=== PATIENT | female | born 1955 | race Asian ===

== ENCOUNTER 2017-06-21 16:53 | Emergency (ER) | payer MEDICAID ==
[~2017-06-21] VITALS: Ht 160 cm; Wt 52.3 kg
[~2017-06-21 16:53] MED LIST: HYDR25TA PO; MERO1I IV; METF850T2 PO
[2017-06-21] MEDS ORDERED: PANT40TA25 PO (17:37)
[2017-06-21] MEDS ORDERED: METO-296 PO (17:37)
[2017-06-21] MEDS ORDERED: HYDR25TA PO (17:37)
[2017-06-21] MEDS ORDERED: IPRA3AMP4 IH (17:37)
[2017-06-21] MEDS ORDERED: ACET1TAB12 PO (17:37)
[2017-06-21] MEDS ORDERED: INSNOV SQ (17:37)
[2017-06-21 18:01] LABS: BASOPHILS % (AUTO) 0.4 % (0.0-2.0); EOSINOPHILS % (AUTO) 1.9 % (1.0-6.0); HEMATOCRIT 34.5 % (36-46); HEMOGLOBIN 11.6 g/dL (12.0-16.0); LYMPHOCYTES # (AUTO) 1.2 K/uL (1.0-4.8); LYMPHOCYTES % (AUTO) 14.9 % (22.0-44.0); MEAN CORPUSCULAR HGB CONC 33.5 G/dL (31.0-37.0); MEAN CORPUSCULAR VOLUME 83 fL (80-100); MONOCYTES # (AUTO) 0.6 K/uL (0.1-1.0); MONOCYTES % (AUTO) 6.9 % (2.0-9.0); NEUTROPHILS % (AUTO) 75.9 % (40.0-70.0); PLATELET COUNT (AUTO) 249 K/uL (150-450); RED BLOOD CELL COUNT(AUTO) 4.13 MIL/uL (4.00-5.20); RED CELL DISTRIBUTION WIDTH 15.9 % (11.5-14.5); WHITE BLOOD COUNT (AUTO) 7.9 K/uL (4.5-11.0)
[2017-06-21 18:07] LABS: CALCIUM, TOTAL 10.2 mg/dL (8.8-10.5); CREATININE 1.17 mg/dL (0.60-1.30)
[2017-06-21 18:13] LABS: ALBUMIN 2.4 g/dL (3.4-5.0); BILIRUBIN,TOTAL 0.6 mg/dL (0.1-1.0); INR 1.1 (0.9-1.1); PROTHROMBIN TIME 11.7 SEC (9.4-11.6); TOTAL PROTEIN, SERUM 8.2 g/dL (6.4-8.2)
[2017-06-21] MEDS ORDERED: HYDROmorphone 2 MG/ML SYRINGE IVP ONE (18:45)
[2017-06-21] MEDS ORDERED: ONDANSETRON HCL 4 MG/2 ML VIAL IVP ONE (18:45)
[2017-06-21] MEDS ORDERED: BARIUM SULFATE 0.1% SUSPENSION 450 ML BOTTLE PO ONE (18:45)
[2017-06-21] MEDS ORDERED: SODIUM CHLORIDE 0.9% 0 ML ONE (19:55)
[2017-06-21] MEDS ORDERED: IOVERSOL 320 MG/ML 100 ML VIAL ONE (19:55)
[2017-06-21 20:50] LABS: APPEARANCE,URINE CLEAR (CLEAR); GLUCOSE, URINE (UA) NEGATIVE (NEGATIVE); KETONES,URINE NEGATIVE (NEGATIVE); LEUKOCYTE ESTERASE ,URINE SMALL (NEGATIVE); OCCULT BLOOD,URINE NEGATIVE (NEGATIVE); PROTEIN,URINE NEGATIVE (NEGATIVE)
[2017-06-21 20:52] LABS: ADD UA MICROSCOPIC YES
[2017-06-21 21:02] LABS: HYALINE CASTS, URINE 0-2 /LPF (None Seen); SQUAMOUS EPITHELIAL CELL,UR Moderate /LPF (None Seen)
[2017-06-21 21:04] LABS: RBC,URINE 0-2 /HPF (0-2)
[2017-06-21 23:00] VITALS: BP 134/77
== END 2017-06-21 23:22 | disposition home or self-care (01) ==
LOC: EMS 16:56
DX: R10.13 Epigastric pain (principal); R11.2 Nausea with vomiting, unspecified; E11.9 Type 2 diabetes mellitus without complications; I10 Essential (primary) hypertension; Z79.4 Long term (current) use of insulin
CPT/HCPCS: 36415; 71010; 74177; 80053; 81001; 83690; 85025; 85610; 85730; 87040; 87086; 87106; 93005; 96374; 96375; 99285; J1170; J2405; Z7610; J7050

== ENCOUNTER 2022-02-09 11:30 | Emergency (ER) | payer MEDICAID ==
[~2022-02-09] VITALS: Ht 160 cm; Wt 65.9 kg
[~2022-02-09 11:30] MED LIST changes: +ACET-2080 PO; -HYDR25TA PO; +HYDR25TA2 PO; +INSNOV SQ; +IPRA3AMP23 IH; +METF-445 PO; -METF850T2 PO; +METO-296 PO; +PANT-31 PO
[2022-02-09] MEDS ORDERED: LACT10SO10 PO (11:54)
[2022-02-09] MEDS ORDERED: FURO20 PO (11:54)
[2022-02-09] MEDS ORDERED: RIFA300 PO (11:54)
[2022-02-09] MEDS ORDERED: GABA-1181 PO (11:54)
[2022-02-09] MEDS ORDERED: PROP20TA18 PO (11:54)
[2022-02-09] MEDS ORDERED: LORA10TA7 PO (11:54)
[2022-02-09] MEDS ORDERED: ASPI-1444 PO (11:54)
[2022-02-09] MEDS ORDERED: LEVO112T4 PO (11:54)
[2022-02-09] MEDS ORDERED: ARIP10TA38 PO (11:54)
[2022-02-09] MEDS ORDERED: SPIR50TA27 PO (11:54)
[2022-02-09] MEDS ORDERED: SODIUM CHLORIDE 0.9% 100 ML ONE (12:55)
[2022-02-09] MEDS ORDERED: IOHEXOL 350 MG/ML 100 ML VIAL ONE (12:55)
[2022-02-09 12:58] LABS: BASOPHILS % (AUTO) 0.8 % (0.0-2.0); EOSINOPHILS % (AUTO) 3.1 % (1.0-6.0); HEMATOCRIT 36.6 % (36-46); LYMPHOCYTES # (AUTO) 1.1 K/uL (1.0-4.8); LYMPHOCYTES % (AUTO) 22.6 % (22.0-44.0); MEAN CORPUSCULAR HEMOGLOBIN 26.4 pg (26.0-34.0); MEAN CORPUSCULAR HGB CONC 32.8 G/dL (31.0-37.0); MEAN CORPUSCULAR VOLUME 80 fL (80-100); MONOCYTES # (AUTO) 0.4 K/uL (0.1-1.0); MONOCYTES % (AUTO) 8.2 % (2.0-9.0); NEUTROPHILS # (AUTO) 3.1 K/uL (1.8-7.7); NEUTROPHILS % (AUTO) 65.3 % (40.0-70.0); PLATELET COUNT (AUTO) 145 K/uL (150-450); RED BLOOD CELL COUNT(AUTO) 4.56 MIL/uL (4.00-5.20); RED CELL DISTRIBUTION WIDTH 15.7 % (11.5-14.5)
[2022-02-09 13:07] LABS: CALCIUM, TOTAL 8.8 mg/dL (8.8-10.5); CREATININE 1.07 mg/dL (0.60-1.30)
[2022-02-09 13:13] LABS: ALBUMIN 3.3 g/dL (3.4-5.0); BILIRUBIN,TOTAL 0.6 mg/dL (0.1-1.0); TOTAL PROTEIN, SERUM 8.5 g/dL (6.4-8.2)
[2022-02-09] MEDS ORDERED: MAG HYDROX/AL HYDROX/SIMETH ES 30 ML SUSPENSION UDCUP PO ONE (13:15)
[2022-02-09] MEDS ORDERED: HYDROCODONE/ACETAMINOPHEN 5-325 MG TABLET PO ONE (13:15)
[2022-02-09 16:24] LABS: APPEARANCE,URINE CLEAR (CLEAR); BACTERIA,URINE None Seen /HPF (None Seen); BILIRUBIN,URINE NEGATIVE (NEGATIVE); GLUCOSE, URINE (UA) NEGATIVE (NEGATIVE); KETONES,URINE NEGATIVE (NEGATIVE); LEUKOCYTE ESTERASE ,URINE NEGATIVE (NEGATIVE); NITRATE,URINE NEGATIVE (NEGATIVE); OCCULT BLOOD,URINE NEGATIVE (NEGATIVE); PH,URINE 6.5 (5.0-8.0); PROTEIN,URINE NEGATIVE (NEGATIVE); RBC,URINE None Seen /HPF (0-2); UROBILINOGEN,URINE 0.2 mg/dL (<=1.0); WBC,URINE None Seen /HPF (0-5)
[2022-02-09 19:17] VITALS: BP 136/78
== END 2022-02-09 19:19 | disposition home or self-care (01) ==
LOC: EMS 11:30
DX: R10.13 Epigastric pain (principal); F32.9 Major depressive disorder, single episode, unspecified; I10 Essential (primary) hypertension; E11.9 Type 2 diabetes mellitus without complications; E03.9 Hypothyroidism, unspecified; F41.9 Anxiety disorder, unspecified; Z88.0 Allergy status to penicillin; Z88.1 Allergy status to other antibiotic agents; Z79.82 Long term (current) use of aspirin; Z79.899 Other long term (current) drug therapy
CPT/HCPCS: 36415; 74177; 80053; 81001; 83690; 85025; 99285; J7050; Q9967

== ENCOUNTER 2025-02-18 13:46 | Inpatient (IN) | payer MEDICAID ==
[~2025-02-18] VITALS: Ht 152.4 cm; Wt 69.0 kg
[~2025-02-18 13:46] MED LIST changes: +ARIP10TA38 PO; +ASPI-1444 PO; +FURO20TA5 PO; +GABA-1181 PO; -HYDR25TA2 PO; -INSNOV SQ; -IPRA3AMP23 IH; +LACT10SO10 PO; +LEVO112T4 PO; +LORA10TA7 PO; -MERO1I IV; -METF-445 PO; -METO-296 PO; -PANT-31 PO; +PROP20TA18 PO; +RIFA300C63 PO; +SPIR50TA27 PO
[2025-02-18 14:49] LABS: BASOPHILS % (AUTO) 0.3 % (0.0-2.0); HEMATOCRIT 35.9 % (36-46); HEMOGLOBIN 11.8 g/dL (12.0-16.0); LYMPHOCYTES # (AUTO) 1.2 K/uL (1.0-4.8); LYMPHOCYTES % (AUTO) 22.9 % (22.0-44.0); MEAN CORPUSCULAR HEMOGLOBIN 25.8 pg (26.0-34.0); MEAN CORPUSCULAR HGB CONC 32.8 G/dL (31.0-37.0); MEAN CORPUSCULAR VOLUME 79 fL (80-100); MONOCYTES # (AUTO) 0.5 K/uL (0.1-1.0); NEUTROPHILS # (AUTO) 3.5 K/uL (1.8-7.7); NEUTROPHILS % (AUTO) 65.8 % (40.0-70.0); PLATELET COUNT (AUTO) 200 K/uL (150-450); RED BLOOD CELL COUNT(AUTO) 4.55 MIL/uL (4.00-5.20); RED CELL DISTRIBUTION WIDTH 22.3 % (11.5-14.5); WHITE BLOOD COUNT (AUTO) 5.4 K/uL (4.5-11.0)
[2025-02-18 14:58] LABS: ANION GAP 9 mmol/L (8-16); CALCIUM, TOTAL 10.2 mg/dL (8.8-10.5); CARBON DIOXIDE 32 mmol/L (22-29); CHLORIDE 95 mmol/L (98-107); CREATININE 1.79 mg/dL (0.60-1.30); GLOMERULAR FILTR. RATE CALC 28 mL/min (>60); GLUCOSE,RANDOM 146 mg/dL (70-110); POTASSIUM 3.6 mmol/L (3.5-5.1); SODIUM SERUM 136 mmol/L (136-145); UREA NITROGEN, BLOOD 29 mg/dL (7-18)
[2025-02-18 15:04] LABS: ALBUMIN 3.3 g/dL (3.4-5.0); BILIRUBIN,DIRECT 0.7 mg/dL (0.00-0.20); BILIRUBIN,TOTAL 1.4 mg/dL (0.1-1.0); TOTAL PROTEIN, SERUM 9.5 g/dL (6.4-8.2)
[2025-02-18 15:08] LABS: CREATINE KINASE, TOTAL ONLY 519 U/L (26-192)
[2025-02-18 15:09] LABS: COVID AG,FIA SOURCE NASAL SWAB
[2025-02-18 15:14] LABS: TROPONIN I-HIGH SENSITIVITY 118 ng/L (<51)
[2025-02-18 15:15] LABS: B-TYPE NATRIURETIC PEPTIDE 47 pg/mL (0-100)
[2025-02-18 15:19] LABS: ALCOHOL, BLOOD (SERUM) < 3 mg/dL (0-10)
[2025-02-18 15:20] LABS: RBC MORPHOLOGY COMMENT ABNORMAL RBC MORPH
[2025-02-18 15:40] LABS: INFLUENZA TYPE A NEGATIVE FOR TYPE A (NEGATIVE); INFLUENZA TYPE B NEGATIVE FOR TYPE B (NEGATIVE); SARS-COV2 (COVID) ANTIGEN,FIA Negative (Negative)
[2025-02-18] MEDS: SODIUM CHLORIDE 0.9% 1,000 ML IV ONE (16:15)
[2025-02-18 17:06] LABS: TROPONIN I-HIGH SENSITIVITY 88 ng/L (<51)
[2025-02-18 17:14] LABS: APPEARANCE,URINE CLEAR (CLEAR); BILIRUBIN,URINE NEGATIVE (NEGATIVE); COLOR,URINE YELLOW (YELLOW); GLUCOSE, URINE (UA) NEGATIVE (NEGATIVE); KETONES,URINE NEGATIVE (NEGATIVE); LEUKOCYTE ESTERASE ,URINE NEGATIVE (NEGATIVE); NITRATE,URINE NEGATIVE (NEGATIVE); OCCULT BLOOD,URINE NEGATIVE (NEGATIVE); PH,URINE 5.5 (5.0-8.0); PH,URINE DRUG SCREEN 5.5 (5.0-8.0); PROTEIN,URINE TRACE mg/dL (NEGATIVE); SPECIFIC GRAVITIY, URINE 1.018 (1.003-1.030); UROBILINOGEN,URINE <=1.0 mg/dL (<=1.0)
[2025-02-18 17:19] LABS: ALCOHOL, URINE DRUG SCREEN NEGATIVE (NEGATIVE); AMPHET/METH SCREEN,URINE NEGATIVE (NEGATIVE); BARBITURATE SCREEN, URINE NEGATIVE (NEGATIVE); BENZODIAZEPINES SCREEN,URINE NEGATIVE (NEGATIVE); CANNABINOID SCREEN,URINE NEGATIVE (NEGATIVE); COCAINE SCREEN,URINE NEGATIVE (NEGATIVE); METHADONE SCREEN, URINE NEGATIVE (NEGATIVE); OPIATE SCREEN,URINE NEGATIVE (NEGATIVE); PHENCYCLIDINE SCREEN,URINE NEGATIVE (NEGATIVE)
[2025-02-18 20:55] VITALS: BP 139/87; PULSE 89; RESP 18; TEMP 97.3; O2SAT 98
[2025-02-18 22:31] LABS: GLUCOMETER DEV NAME(LOC) 5S.2D; GLUCOSE,POINT OF CARE 125 MG/DL (70-110)
[2025-02-18 23:29] VITALS: BP 129/59; PULSE 71; RESP 18; TEMP 98.1; O2SAT 96
[2025-02-18] MEDS: ACETAMINOPHEN 325 MG TABLET PO PRN (23:37)
[2025-02-18] MEDS: ASPIRIN 81 MG CHEWABLE TABLET PO ONE (23:37)
[2025-02-18] MEDS: HEPARIN SODIUM,PORCINE 5,000 UNITS/ML VIAL SQ SCH (23:37)
[2025-02-18] MEDS: SODIUM CHLORIDE 0.9% 1,000 ML IV SCH (23:38)
[2025-02-18] MEDS: DOCUSATE SODIUM 100 MG CAPSULE PO SCH (23:38)
[2025-02-19 03:00] VITALS: BP 133/69; PULSE 65; RESP 18; TEMP 97.9; O2SAT 96
[2025-02-19] MEDS: KETOROLAC TROMETHAMINE 30 MG/ML VIAL IVP ONE (03:03)
[2025-02-19] MEDS: MELATONIN 5 MG TABLET PO PRN (03:04)
[2025-02-19] MEDS: LEVOTHYROXINE SODIUM 112 MCG TABLET PO SCH (06:22)
[2025-02-19 07:43] LABS: BASOPHILS % (AUTO) 0.8 % (0.0-2.0); EOSINOPHILS % (AUTO) 2.5 % (1.0-6.0); HEMATOCRIT 30.2 % (36-46); HEMOGLOBIN 9.8 g/dL (12.0-16.0); LYMPHOCYTES # (AUTO) 1.1 K/uL (1.0-4.8); MEAN CORPUSCULAR HEMOGLOBIN 25.7 pg (26.0-34.0); MEAN CORPUSCULAR HGB CONC 32.6 G/dL (31.0-37.0); MEAN CORPUSCULAR VOLUME 79 fL (80-100); MONOCYTES # (AUTO) 0.4 K/uL (0.1-1.0); MONOCYTES % (AUTO) 10.4 % (2.0-9.0); NEUTROPHILS # (AUTO) 2.1 K/uL (1.8-7.7); NEUTROPHILS % (AUTO) 57.3 % (40.0-70.0); PLATELET COUNT (AUTO) 135 K/uL (150-450); RED BLOOD CELL COUNT(AUTO) 3.82 MIL/uL (4.00-5.20); RED CELL DISTRIBUTION WIDTH 21.6 % (11.5-14.5)
[2025-02-19 07:47] LABS: WHITE BLOOD COUNT (AUTO) 3.6 K/uL (4.5-11.0)
[2025-02-19 07:54] LABS: CHOL/HDL RATIO 2.7 (3.9-5.7); CREATININE 1.24 mg/dL (0.60-1.30); MAGNESIUM 1.1 mg/dL (1.80-2.40); POTASSIUM 3.6 mmol/L (3.5-5.1)
[2025-02-19] MEDS: CLOPIDOGREL BISULFATE 75 MG TABLET PO SCH (08:12)
[2025-02-19] MEDS: GABAPENTIN 300 MG CAPSULE PO SCH (08:13)
[2025-02-19] MEDS: ASPIRIN 81 MG CHEWABLE TABLET PO SCH (08:13)
[2025-02-19] MEDS: ARIPiprazole 10 MG TABLET PO SCH (08:17)
[2025-02-19] MEDS: PROPRANOLOL HCL 20 MG TABLET PO SCH (08:21)
[2025-02-19 08:29] VITALS: BP 152/79; PULSE 71; RESP 19; TEMP 97.7; O2SAT 99
[2025-02-19] MEDS: ASPIRIN 81 MG DR TABLET PO SCH (09:00)
[2025-02-19] MEDS: SODIUM CHLORIDE 0.9% 1,000 ML IV SCH (10:52)
[2025-02-19 11:47] VITALS: BP 155/77; PULSE 72; RESP 18; RESP 20; TEMP 98.1; O2SAT 98
[2025-02-19 12:01] LABS: THYROID STIMULATING HORMONE 26.69 uIU/mL (0.36-3.74)
[2025-02-19 15:15] VITALS: BP 156/82; PULSE 71; RESP 19; TEMP 98; O2SAT 98
[2025-02-19] MEDS: ONDANSETRON HCL 4 MG/2 ML VIAL IVP PRN (15:31)
[2025-02-19] MEDS: GABAPENTIN 100 MG CAPSULE PO SCH (15:31)
[2025-02-19 20:13] VITALS: BP 131/66; PULSE 69; RESP 18; TEMP 98.2; O2SAT 96
[2025-02-19] MEDS: ATORVASTATIN CALCIUM 40 MG TABLET PO SCH (21:10)
[2025-02-19 23:34] VITALS: BP 139/81; PULSE 67; RESP 18; TEMP 98.5; O2SAT 98
[2025-02-20 04:09] VITALS: BP 126/70; PULSE 66; RESP 18; TEMP 98.2; O2SAT 94
[2025-02-20 08:00] VITALS: BP 140/81; PULSE 66; RESP 17; TEMP 97.7; O2SAT 97
[2025-02-20 16:50] VITALS: BP 150/85; PULSE 61; RESP 17; TEMP 97.7; O2SAT 98
[2025-02-20 19:42] VITALS: BP 138/72; PULSE 64; RESP 18; TEMP 97.9; O2SAT 98
[2025-02-21 04:26] VITALS: BP 102/76; PULSE 62; RESP 18; TEMP 97.7; O2SAT 96
[2025-02-21 08:00] VITALS: BP 152/88; PULSE 62; RESP 20; TEMP 98.1; O2SAT 99
[2025-02-21] MEDS ORDERED: MAGNESIUM OXIDE 400 MG TABLET PO PRN (10:00)
[2025-02-21] MEDS ORDERED: MAGNESIUM SULFATE 2 GM/WATER 50 ML IV PRN (10:00)
[2025-02-21 10:56] LABS: ALBUMIN 2.1 g/dL (3.4-5.0); MAGNESIUM 1.2 mg/dL (1.80-2.40)
[2025-02-21] MEDS: MAGNESIUM SULFATE 4 GM/WATER 100 ML IV PRN (12:26)
[2025-02-21 16:32] VITALS: BP 139/88; PULSE 64; RESP 16; TEMP 98.4; O2SAT 99
[2025-02-21 20:34] VITALS: BP 124/82; PULSE 69; RESP 18; TEMP 98.4; O2SAT 98
[2025-02-22 05:58] VITALS: BP 118/76; PULSE 67; RESP 18; TEMP 97.9; O2SAT 95
[2025-02-22 08:15] VITALS: BP 132/20; PULSE 62; RESP 18; TEMP 98.1; O2SAT 97
[2025-02-22 16:21] VITALS: BP 137/111; PULSE 64; RESP 18; TEMP 98.1; O2SAT 99
[2025-02-22 20:00] VITALS: BP 150/81; PULSE 64; RESP 20; TEMP 97.5; O2SAT 99
[2025-02-23 04:57] VITALS: BP 131/75; PULSE 60; RESP 18; TEMP 98.2; O2SAT 96
[2025-02-23 08:59] VITALS: BP 153/79; PULSE 60; RESP 18; TEMP 97.9; O2SAT 100
[2025-02-23 11:48] LABS: BASOPHILS % (AUTO) 0.8 % (0.0-2.0); EOSINOPHILS % (AUTO) 2.7 % (1.0-6.0); HEMATOCRIT 30.2 % (36-46); HEMOGLOBIN 9.7 g/dL (12.0-16.0); LYMPHOCYTES # (AUTO) 0.8 K/uL (1.0-4.8); LYMPHOCYTES % (AUTO) 23.1 % (22.0-44.0); MEAN CORPUSCULAR HEMOGLOBIN 25.8 pg (26.0-34.0); MEAN CORPUSCULAR HGB CONC 32.2 G/dL (31.0-37.0); MEAN CORPUSCULAR VOLUME 80 fL (80-100); MONOCYTES # (AUTO) 0.3 K/uL (0.1-1.0); NEUTROPHILS # (AUTO) 2.3 K/uL (1.8-7.7); NEUTROPHILS % (AUTO) 65.4 % (40.0-70.0); PLATELET COUNT (AUTO) 126 K/uL (150-450); RED BLOOD CELL COUNT(AUTO) 3.78 MIL/uL (4.00-5.20); RED CELL DISTRIBUTION WIDTH 21.7 % (11.5-14.5); WHITE BLOOD COUNT (AUTO) 3.5 K/uL (4.5-11.0)
[2025-02-23 11:57] LABS: CALCIUM, TOTAL 8.9 mg/dL (8.8-10.5); CREATININE 1.13 mg/dL (0.60-1.30); POTASSIUM 4.1 mmol/L (3.5-5.1)
[2025-02-23] MEDS: LACTULOSE 20 GM/30 ML SOLUTION UDCUP PO PRN (14:25)
[2025-02-23 15:26] VITALS: BP 168/84; PULSE 63; RESP 18; TEMP 98; O2SAT 100
== END 2025-02-23 17:09 | disposition left against medical advice (07) | DRG 469 ==
LOC: EMS 13:48 → EDH 20:28 → 5S 21:12 → 6S 02-20 19:38
PROVIDERS: ADMIT Internal Medicine; ATTEND Internal Medicine
DX: N17.9 Acute kidney failure, unspecified (principal); G93.40 Encephalopathy, unspecified; I21.A1 Myocardial infarction type 2; M62.82 Rhabdomyolysis; E11.9 Type 2 diabetes mellitus without complications; D64.9 Anemia, unspecified; E03.9 Hypothyroidism, unspecified; E83.42 Hypomagnesemia; F32.A Depression, unspecified; I10 Essential (primary) hypertension; Z20.822 Contact with and (suspected) exposure to COVID-19; F41.9 Anxiety disorder, unspecified; G89.29 Other chronic pain; F99 Mental disorder, not otherwise specified; Z88.0 Allergy status to penicillin; Z53.29 Procedure and treatment not carried out because of patient's decision for other reasons
CPT/HCPCS: 70450; 71045; 74176; 76705; 80048; 80061; 80076; 80307; 81003; 82040; 82140; 82550; 82948; 82962; 83735; 83880; 84443; 84484; 85025; 85730; 87804; 92526; 92610; 93005; 93306; 97116; 97163; 97166; 97530; 97535; 99285; G0378; G0480; J1644; J1885; J2405; J3475; J7030; 36415-L1; 36415-TC

== ENCOUNTER 2025-02-27 14:43 | Emergency (ER) | payer MEDICAID ==
[~2025-02-27] VITALS: Ht 165.1 cm; Wt 60.0 kg
[2025-02-27 15:44] VITALS: BP 159/97; PULSE 76; RESP 16; TEMP 98; O2SAT 98
== END 2025-02-27 17:02 | disposition home or self-care (01) ==
LOC: EMS 14:45
DX: Z45.2 Encounter for adjustment and management of vascular access device (principal); E11.9 Type 2 diabetes mellitus without complications; E03.9 Hypothyroidism, unspecified; F41.9 Anxiety disorder, unspecified; F32.A Depression, unspecified; I10 Essential (primary) hypertension; Z88.0 Allergy status to penicillin; Z79.899 Other long term (current) drug therapy; Z79.82 Long term (current) use of aspirin
CPT/HCPCS: 99283; Z7502